=== PATIENT | male | born 1940 | race African-American/Black ===

== ENCOUNTER 2021-01-30 10:53 | Inpatient (IN) | payer MEDICARE, MEDICAID ==
[~2021-01-30] VITALS: Ht 182.9 cm; Wt 106.6 kg
[~2021-01-30 10:53] MED LIST: ASPI-1073 PO; BACL-141 PO; BENA40TA9 PO; ESOM40CA PO; EZET10TA13 PO; FURO40TA5 PO; LOVA40TA73 PO; TERA10CA4 PO; VERA240T16 PO
[2021-01-30 11:51] LABS: BASOPHILS % 0.9 % (0.0-2.0); EOSINOPHILS % 0.7 % (0.0-5.0); HEMATOCRIT. 33.7 % (42.0-52.0); HEMOGLOBIN. 11.2 g/dL (14.0-18.0); LYMPHOCYTES % 14.5 % (20.0-50.0); MEAN CORPUSCULAR HEMOGLOBIN 29.1 pg (28.0-32.0); MEAN CORPUSCULAR VOLUME 87.2 fL (80.0-94.0); MEAN PLATELET VOLUME 8.4 fl (7.4-10.4); MONOCYTES % 10.3 % (2.0-8.0); NEUTROPHILS % 73.6 % (40.0-76.0); PLATELET 237 x1000/uL (130-400); RED BLOOD CELL COUNT 3.86 mill/uL (4.7-6.1); RED CELL DISTRIBUTION WIDTH 15.7 % (11.6-14.6)
[2021-01-30 12:03] LABS: CHLORIDE 107 mEq/L (98-107)
[2021-01-30] MEDS ORDERED: VANCOMYCIN 1 G PREMIX 200 ML IV SCH (13:00)
[2021-01-30] MEDS ORDERED: PIPERACILLIN/TAZOBACTAM 3.375GM/50ML PREMIX IV NR (13:00)
[2021-01-30] MEDS ORDERED: MORPHINE SULFATE 4 MG/ML CPJ (NOT FOR IM USE) IV ONE (16:15)
[2021-01-30] MEDS: GUAIFENESIN 600MG ER TABLET PO SCH (16:23)
[2021-01-30] MEDS ORDERED: ONDANSETRON HCL 4MG/2ML INJ IV PRN (17:00)
[2021-01-30] MEDS ORDERED: CEFTRIAXONE 2 G in DEXTROSE 5% WATER 50 ML IV SCH (18:00)
[2021-01-30 18:31] VITALS: BP 158/75
[2021-01-30 20:00] VITALS: BP 151/80
[2021-01-30] MEDS ORDERED: TETANUS AND DIPHTHERIA TOX/PF 0.5ML SYR (ADULT) IM ONE (20:00)
[2021-01-30] MEDS ORDERED: PIPERACILLIN/TAZ 3.375G PREMIX 100 ML IV SCH (20:00)
[2021-01-30] MEDS: IBUPROFEN 600MG TABLET PO PRN (20:03)
[2021-01-30 20:57] VITALS: BP 151/80
[2021-01-30] MEDS: CEFTRIAXONE 2 G in DEXTROSE 5% WATER 50 ML IV SCH (22:02)
[2021-01-30] MEDS: HEPARIN 5000 UNITS/ML VIAL SUBCUT SCH (22:03)
[2021-01-30] MEDS ORDERED: HYDR12.54 PO (23:01)
[2021-01-30] MEDS ORDERED: OMEP40CA12 PO (23:01)
[2021-01-30] MEDS ORDERED: METO-385 PO (23:01)
[2021-01-30] MEDS ORDERED: AMLO5TAB88 PO (23:01)
[2021-01-30] MEDS ORDERED: GABA-532 PO (23:01)
[2021-01-30] MEDS ORDERED: PRAV20TA57 PO (23:01)
[2021-01-30] MEDS ORDERED: IRBE300T17 PO (23:01)
[2021-01-30] MEDS ORDERED: DOCU250C14 PO (23:01)
[2021-01-31] VITALS: BP 153/78
[2021-01-31] MEDS ORDERED: VANCOMYCIN 1 G PREMIX 200 ML IV SCH ×2 (03:00)
[2021-01-31 04:00] VITALS: BP 122/77
[2021-01-31] MEDS: IBUPROFEN 600MG TABLET PO PRN ×2 (04:57→14:53)
[2021-01-31 07:22] LABS: CHLORIDE 107 mEq/L (98-107)
[2021-01-31 07:40] LABS: BASOPHILS % 0.6 % (0.0-2.0); EOSINOPHILS % 0.6 % (0.0-5.0); HEMATOCRIT. 32.5 % (42.0-52.0); LYMPHOCYTES % 10.3 % (20.0-50.0); MEAN CORPUSCULAR HEMOGLOBIN 29.5 pg (28.0-32.0); MEAN CORPUSCULAR VOLUME 86.9 fL (80.0-94.0); MEAN PLATELET VOLUME 9.1 fl (7.4-10.4); MONOCYTES % 12.2 % (2.0-8.0); NEUTROPHILS % 76.3 % (40.0-76.0); PLATELET 241 x1000/uL (130-400); RED BLOOD CELL COUNT 3.75 mill/uL (4.7-6.1); RED CELL DISTRIBUTION WIDTH 15.2 % (11.6-14.6)
[2021-01-31 08:00] VITALS: BP 128/74
[2021-01-31] MEDS: HEPARIN 5000 UNITS/ML VIAL SUBCUT SCH ×2 (08:56→20:58)
[2021-01-31] MEDS: GUAIFENESIN 600MG ER TABLET PO SCH ×2 (08:56→20:59)
[2021-01-31] MEDS ORDERED: AMLODIPINE 10MG TABLET PO SCH (09:00)
[2021-01-31 12:00] VITALS: BP 120/72
[2021-01-31] MEDS ORDERED: POTASSIUM CHLORIDE 20MEQ TABLET SR PO NR (14:15)
[2021-01-31] MEDS: GABAPENTIN 300MG CAPSULE PO SCH ×2 (15:01→20:59)
[2021-01-31 16:00] VITALS: BP 153/58
[2021-01-31] MEDS: DOCUSATE SODIUM 250MG CAPSULE PO SCH (17:55)
[2021-01-31] MEDS: VANCOMYCIN 1 G PREMIX 200 ML IV SCH (17:55)
[2021-01-31 20:00] VITALS: BP 157/77
[2021-01-31] MEDS: CEFTRIAXONE 2 G in DEXTROSE 5% WATER 50 ML IV SCH (20:58)
[2021-01-31] MEDS: METOPROLOL TARTRATE 25MG TABLET PO SCH (21:12)
[2021-01-31] MEDS: ACETAMINOPHEN 325MG TABLET PO PRN (21:31)
[2021-02-01] VITALS: BP 130/68
[2021-02-01] MEDS: ACETAMINOPHEN 325MG TABLET PO PRN ×4 (03:55→20:51)
[2021-02-01 04:00] VITALS: BP 128/68
[2021-02-01] MEDS: VANCOMYCIN 1 G PREMIX 200 ML IV SCH ×3 (05:10→21:56)
[2021-02-01] MEDS: GABAPENTIN 300MG CAPSULE PO SCH ×3 (05:11→20:50)
[2021-02-01 05:46] LABS: CHLORIDE 107 mEq/L (98-107)
[2021-02-01 05:58] LABS: VANCOMYCIN TROUGH 4.6 ug/mL (5.0-10.0)
[2021-02-01 06:16] LABS: BASOPHILS % 0.4 % (0.0-2.0); EOSINOPHILS % 0.1 % (0.0-5.0); HEMATOCRIT. 31.3 % (42.0-52.0); HEMOGLOBIN. 10.4 g/dL (14.0-18.0); LYMPHOCYTES % 8.5 % (20.0-50.0); MEAN CORPUSCULAR HEMOGLOBIN 28.9 pg (28.0-32.0); MEAN CORPUSCULAR VOLUME 87.1 fL (80.0-94.0); MEAN PLATELET VOLUME 9.2 fl (7.4-10.4); MONOCYTES % 11.5 % (2.0-8.0); NEUTROPHILS % 79.5 % (40.0-76.0); PLATELET 248 x1000/uL (130-400); RED BLOOD CELL COUNT 3.59 mill/uL (4.7-6.1); RED CELL DISTRIBUTION WIDTH 15.2 % (11.6-14.6)
[2021-02-01 08:00] VITALS: BP 148/71
[2021-02-01] MEDS: GUAIFENESIN 600MG ER TABLET PO SCH ×2 (08:45→20:50)
[2021-02-01] MEDS: AMLODIPINE 5MG TABLET PO SCH ×2 (08:45→20:50)
[2021-02-01] MEDS: DOCUSATE SODIUM 250MG CAPSULE PO SCH ×2 (08:45→18:17)
[2021-02-01] MEDS: METOPROLOL TARTRATE 25MG TABLET PO SCH ×2 (08:46→20:52)
[2021-02-01] MEDS: HEPARIN 5000 UNITS/ML VIAL SUBCUT SCH ×2 (08:46→20:51)
[2021-02-01 11:45] VITALS: BP 149/79
[2021-02-01] MEDS: IBUPROFEN 600MG TABLET PO PRN (12:50)
[2021-02-01] MEDS ORDERED: POTASSIUM CHLORIDE 20MEQ TABLET SR PO NR (14:15)
[2021-02-01 16:00] VITALS: BP 157/72
[2021-02-01 20:00] VITALS: BP 131/77
[2021-02-01] MEDS: CEFTRIAXONE 2 G in DEXTROSE 5% WATER 50 ML IV SCH (20:49)
[2021-02-02] VITALS: BP 122/62
[2021-02-02 04:00] VITALS: BP 122/64
[2021-02-02] MEDS: ACETAMINOPHEN 325MG TABLET PO PRN ×4 (05:51→21:39)
[2021-02-02] MEDS: VANCOMYCIN 1 G PREMIX 200 ML IV SCH (05:51)
[2021-02-02] MEDS: GABAPENTIN 300MG CAPSULE PO SCH ×3 (05:51→21:23)
[2021-02-02 08:00] VITALS: BP 146/74
[2021-02-02] MEDS: GUAIFENESIN 600MG ER TABLET PO SCH ×2 (09:18→21:23)
[2021-02-02] MEDS: DOCUSATE SODIUM 250MG CAPSULE PO SCH ×2 (09:20→17:37)
[2021-02-02] MEDS: AMLODIPINE 5MG TABLET PO SCH ×2 (09:20→21:24)
[2021-02-02] MEDS: HEPARIN 5000 UNITS/ML VIAL SUBCUT SCH ×2 (09:21→21:24)
[2021-02-02] MEDS: METOPROLOL TARTRATE 25MG TABLET PO SCH ×2 (09:21→21:24)
[2021-02-02 09:51] LABS: BASOPHILS % 0.5 % (0.0-2.0); EOSINOPHILS % 0.5 % (0.0-5.0); HEMATOCRIT. 30.5 % (42.0-52.0); HEMOGLOBIN. 10.2 g/dL (14.0-18.0); LYMPHOCYTES % 7.8 % (20.0-50.0); MEAN CORPUSCULAR VOLUME 86.9 fL (80.0-94.0); MEAN PLATELET VOLUME 9.1 fl (7.4-10.4); MONOCYTES % 10.6 % (2.0-8.0); NEUTROPHILS % 80.6 % (40.0-76.0); PLATELET 239 x1000/uL (130-400); RED BLOOD CELL COUNT 3.51 mill/uL (4.7-6.1); RED CELL DISTRIBUTION WIDTH 16.1 % (11.6-14.6)
[2021-02-02 10:16] LABS: CHLORIDE 104 mEq/L (98-107)
[2021-02-02] MEDS ORDERED: POTASSIUM CHLORIDE 20MEQ TABLET SR PO NR ×2 (11:00→13:00)
[2021-02-02 12:00] VITALS: BP 122/59
[2021-02-02 16:00] VITALS: BP 140/63
[2021-02-02] MEDS: VANCOMYCIN 1250MG in DEXTROSE 5% WATER 250ML IV SCH (17:37)
[2021-02-02 20:00] VITALS: BP 139/70
[2021-02-02] MEDS: CEFTRIAXONE 2 G in DEXTROSE 5% WATER 50 ML IV SCH (21:23)
[2021-02-02] MEDS: TRAZODONE HCL 50MG TABLET PO PRN (21:38)
[2021-02-03] VITALS: BP 141/65
[2021-02-03] MEDS: ACETAMINOPHEN 325MG TABLET PO PRN ×3 (02:36→18:07)
[2021-02-03 04:00] VITALS: BP 138/66
[2021-02-03] MEDS: GABAPENTIN 300MG CAPSULE PO SCH ×3 (05:14→21:00)
[2021-02-03] MEDS: VANCOMYCIN 1250MG in DEXTROSE 5% WATER 250ML IV SCH ×2 (05:14→17:16)
[2021-02-03 07:02] LABS: HEMATOCRIT. 29.3 % (42.0-52.0); HEMOGLOBIN. 9.7 g/dL (14.0-18.0); MEAN CORPUSCULAR HEMOGLOBIN 28.6 pg (28.0-32.0); MEAN CORPUSCULAR VOLUME 86.3 fL (80.0-94.0); MEAN PLATELET VOLUME 8.9 fl (7.4-10.4); PLATELET 260 x1000/uL (130-400); RED CELL DISTRIBUTION WIDTH 16.1 % (11.6-14.6)
[2021-02-03 07:12] LABS: CHLORIDE 107 mEq/L (98-107)
[2021-02-03 08:00] VITALS: BP 112/70
[2021-02-03] MEDS: DOCUSATE SODIUM 250MG CAPSULE PO SCH ×2 (08:32→17:16)
[2021-02-03] MEDS: GUAIFENESIN 600MG ER TABLET PO SCH ×2 (08:32→20:55)
[2021-02-03] MEDS: AMLODIPINE 5MG TABLET PO SCH ×2 (08:32→20:55)
[2021-02-03] MEDS: METOPROLOL TARTRATE 25MG TABLET PO SCH ×2 (08:33→20:55)
[2021-02-03] MEDS: HEPARIN 5000 UNITS/ML VIAL SUBCUT SCH ×2 (08:34→20:56)
[2021-02-03 12:00] VITALS: BP 150/72
[2021-02-03] MEDS: TRAMADOL 50MG TABLET PO PRN ×2 (13:22→19:35)
[2021-02-03 16:00] VITALS: BP 142/73
[2021-02-03 19:36] LABS: PLATELET ESTIMATE NORMAL
[2021-02-03 20:00] VITALS: BP 144/75
[2021-02-03] MEDS: CEFTRIAXONE 2 G in DEXTROSE 5% WATER 50 ML IV SCH (20:45)
[2021-02-03] MEDS: TRAZODONE HCL 50MG TABLET PO PRN (21:00)
[2021-02-04] VITALS: BP 121/65
[2021-02-04] MEDS: TRAMADOL 50MG TABLET PO PRN ×3 (01:38→17:12)
[2021-02-04 04:00] VITALS: BP 115/62
[2021-02-04] MEDS: VANCOMYCIN 1250MG in DEXTROSE 5% WATER 250ML IV SCH (05:07)
[2021-02-04] MEDS: GABAPENTIN 300MG CAPSULE PO SCH ×3 (05:07→21:05)
[2021-02-04 06:21] LABS: HEMATOCRIT. 30.9 % (42.0-52.0); HEMOGLOBIN. 10.2 g/dL (14.0-18.0); MEAN CORPUSCULAR HEMOGLOBIN 28.4 pg (28.0-32.0); MEAN CORPUSCULAR VOLUME 86.5 fL (80.0-94.0); MEAN PLATELET VOLUME 8.6 fl (7.4-10.4); PLATELET 310 x1000/uL (130-400); RED BLOOD CELL COUNT 3.57 mill/uL (4.7-6.1); RED CELL DISTRIBUTION WIDTH 16.2 % (11.6-14.6)
[2021-02-04 07:26] LABS: CHLORIDE 106 mEq/L (98-107)
[2021-02-04 08:00] VITALS: BP 124/63
[2021-02-04] MEDS: DOCUSATE SODIUM 250MG CAPSULE PO SCH ×2 (08:34→17:11)
[2021-02-04] MEDS: GUAIFENESIN 600MG ER TABLET PO SCH ×2 (08:35→21:04)
[2021-02-04] MEDS: METOPROLOL TARTRATE 25MG TABLET PO SCH ×2 (08:35→21:04)
[2021-02-04] MEDS: AMLODIPINE 5MG TABLET PO SCH ×2 (08:35→21:05)
[2021-02-04] MEDS: HEPARIN 5000 UNITS/ML VIAL SUBCUT SCH ×2 (08:36→21:04)
[2021-02-04] MEDS: ACETAMINOPHEN 325MG TABLET PO PRN (10:34)
[2021-02-04 12:00] VITALS: BP 116/65
[2021-02-04 12:40] LABS: PLATELET ESTIMATE NORMAL
[2021-02-04] MEDS: HYDROCODONE/ACETAMINOPHEN 5/325MG TABLET PO PRN ×2 (13:19→21:06)
[2021-02-04 16:00] VITALS: BP 139/64
[2021-02-04 20:00] VITALS: BP 135/67
[2021-02-04] MEDS: CEFTRIAXONE 2 G in DEXTROSE 5% WATER 50 ML IV SCH (20:29)
[2021-02-04] MEDS: VANCOMYCIN 1 G PREMIX 200 ML IV SCH (21:06)
[2021-02-05] VITALS: BP 126/68
[2021-02-05 04:00] VITALS: BP 134/76
[2021-02-05] MEDS: HYDROCODONE/ACETAMINOPHEN 5/325MG TABLET PO PRN ×2 (04:05→20:13)
[2021-02-05] MEDS: GABAPENTIN 300MG CAPSULE PO SCH ×3 (05:53→21:58)
[2021-02-05 08:00] VITALS: BP 128/60
[2021-02-05 08:33] LABS: HEMATOCRIT. 29.1 % (42.0-52.0); HEMOGLOBIN. 9.7 g/dL (14.0-18.0); MEAN CORPUSCULAR HEMOGLOBIN 28.7 pg (28.0-32.0); MEAN CORPUSCULAR VOLUME 86.1 fL (80.0-94.0); MEAN PLATELET VOLUME 8.4 fl (7.4-10.4); PLATELET 322 x1000/uL (130-400); RED BLOOD CELL COUNT 3.38 mill/uL (4.7-6.1); RED CELL DISTRIBUTION WIDTH 16.5 % (11.6-14.6)
[2021-02-05] MEDS: IBUPROFEN 600MG TABLET PO PRN ×2 (08:37→17:18)
[2021-02-05] MEDS: AMLODIPINE 5MG TABLET PO SCH (09:14)
[2021-02-05] MEDS: DOCUSATE SODIUM 250MG CAPSULE PO SCH ×2 (09:14→17:18)
[2021-02-05] MEDS: GUAIFENESIN 600MG ER TABLET PO SCH ×2 (09:14→21:57)
[2021-02-05] MEDS: METOPROLOL TARTRATE 25MG TABLET PO SCH (09:15)
[2021-02-05] MEDS: HEPARIN 5000 UNITS/ML VIAL SUBCUT SCH ×2 (09:15→21:59)
[2021-02-05] MEDS: VANCOMYCIN 1 G PREMIX 200 ML IV SCH (09:15)
[2021-02-05 12:00] VITALS: BP 108/62
[2021-02-05 16:00] VITALS: BP 118/60
[2021-02-05 16:54] LABS: PLATELET ESTIMATE NORMAL
[2021-02-05 20:00] VITALS: BP 130/64
[2021-02-05] MEDS: CEFTRIAXONE 2 G in DEXTROSE 5% WATER 50 ML IV SCH (20:12)
[2021-02-05] MEDS: METOPROLOL TARTRATE 50MG TABLET PO SCH (21:57)
[2021-02-05] MEDS: AMLODIPINE 2.5MG TABLET PO SCH (21:58)
[2021-02-06] VITALS: BP 112/59
[2021-02-06] MEDS: HYDROCODONE/ACETAMINOPHEN 5/325MG TABLET PO PRN ×2 (01:25→20:44)
[2021-02-06 04:00] VITALS: BP 115/61
[2021-02-06] MEDS: GABAPENTIN 300MG CAPSULE PO SCH ×3 (05:10→21:53)
[2021-02-06 08:00] VITALS: BP 121/43
[2021-02-06] MEDS: AMLODIPINE 2.5MG TABLET PO SCH ×2 (09:00→20:19)
[2021-02-06] MEDS: DOCUSATE SODIUM 250MG CAPSULE PO SCH ×2 (09:00→18:32)
[2021-02-06] MEDS: GUAIFENESIN 600MG ER TABLET PO SCH ×2 (09:00→20:37)
[2021-02-06] MEDS: METOPROLOL TARTRATE 50MG TABLET PO SCH ×2 (09:00→20:43)
[2021-02-06] MEDS: HEPARIN 5000 UNITS/ML VIAL SUBCUT SCH ×2 (09:00→20:37)
[2021-02-06] MEDS: IBUPROFEN 600MG TABLET PO PRN (11:16)
[2021-02-06] MEDS ORDERED: VANCOMYCIN HCL 1 GM/VIAL ONE (11:56)
[2021-02-06] MEDS ORDERED: BACITRACIN 50,000 UNITS/VIAL ONE (11:57)
[2021-02-06] MEDS ORDERED: ROPIVACAINE HCL 10MG/ML 20 ML VIAL EPI ONE (12:32)
[2021-02-06] MEDS ORDERED: LABETALOL 5MG/ML SYR 20 MG/4 ML SYRINGE IV PRN (13:15)
[2021-02-06] MEDS ORDERED: HYDROMORPHONE HCL/PF 2MG/ML CPJ IV PRN (13:15)
[2021-02-06] MEDS ORDERED: MEPERIDINE HCL/PF 25MG/ML CPJ IV PRN (13:15)
[2021-02-06] MEDS ORDERED: ONDANSETRON HCL 4MG/2ML INJ IV PRN (13:15)
[2021-02-06 20:00] VITALS: BP 118/71
[2021-02-06] MEDS: CEFTRIAXONE 2 G in DEXTROSE 5% WATER 50 ML IV SCH (20:06)
[2021-02-06] MEDS: LINEZOLID 600 MG PREMIX 300 ML IV SCH (23:52)
[2021-02-07] VITALS: BP 103/52
[2021-02-07 04:00] VITALS: BP 130/58
[2021-02-07] MEDS: TRAMADOL 50MG TABLET PO PRN (04:25)
[2021-02-07] MEDS: GABAPENTIN 300MG CAPSULE PO SCH ×3 (06:13→20:36)
[2021-02-07 08:00] VITALS: BP 103/64
[2021-02-07] MEDS: METOPROLOL TARTRATE 50MG TABLET PO SCH ×2 (08:22→20:36)
[2021-02-07] MEDS: AMLODIPINE 2.5MG TABLET PO SCH ×2 (08:23→20:39)
[2021-02-07] MEDS: DOCUSATE SODIUM 250MG CAPSULE PO SCH ×2 (08:33→16:18)
[2021-02-07] MEDS: HYDROCODONE/ACETAMINOPHEN 5/325MG TABLET PO PRN (08:33)
[2021-02-07] MEDS: LINEZOLID 600 MG PREMIX 300 ML IV SCH ×2 (08:33→22:32)
[2021-02-07] MEDS: GUAIFENESIN 600MG ER TABLET PO SCH ×2 (08:33→20:39)
[2021-02-07] MEDS: HEPARIN 5000 UNITS/ML VIAL SUBCUT SCH ×2 (08:33→20:40)
[2021-02-07] MEDS: SODIUM CHLORIDE 0.9% 1,000 ML IV SCH (11:22)
[2021-02-07 12:00] VITALS: BP 105/54
[2021-02-07] MEDS ORDERED: ALLOPURINOL 100 MG TABLET PO SCH (13:15)
[2021-02-07] MEDS: COLCHICINE 0.6MG TABLET PO SCH (15:06)
[2021-02-07 15:50] LABS: CLARITY URINE CLOUDY (CLEAR); COLOR URINE DARK YELLOW (YELLOW); KETONES URINE NEGATIVE (NEGATIVE); LEUKOCYTE ESTERASE URINE TRACE (NEGATIVE); NITRITE URINE NEGATIVE (NEGATIVE); OCCULT BLOOD URINE TRACE (NEGATIVE); PROTEIN URINE TRACE (NEGATIVE)
[2021-02-07 16:00] VITALS: BP 141/56
[2021-02-07] MEDS: CEFTRIAXONE 2 G in DEXTROSE 5% WATER 50 ML IV SCH (20:36)
[2021-02-07 20:39] VITALS: BP 165/71
[2021-02-07] MEDS: ACETAMINOPHEN 325MG TABLET PO PRN (20:39)
[2021-02-08] MEDS: TRAMADOL 50MG TABLET PO PRN ×2 (00:45→09:33)
[2021-02-08 01:02] VITALS: BP 127/58
[2021-02-08] MEDS: GABAPENTIN 300MG CAPSULE PO SCH ×3 (06:11→21:00)
[2021-02-08 06:22] LABS: HEMATOCRIT. 24.7 % (42.0-52.0); HEMOGLOBIN. 8.4 g/dL (14.0-18.0); MEAN CORPUSCULAR VOLUME 85.3 fL (80.0-94.0); MEAN PLATELET VOLUME 7.8 fl (7.4-10.4); PLATELET 414 x1000/uL (130-400); RED CELL DISTRIBUTION WIDTH 16.8 % (11.6-14.6)
[2021-02-08 06:40] LABS: PHOSPHORUS 4.8 mg/dL (2.5-4.9)
[2021-02-08 08:00] VITALS: BP 122/59
[2021-02-08] MEDS ORDERED: POTASSIUM CHLORIDE 20MEQ TABLET SR PO SCH (09:00)
[2021-02-08] MEDS ORDERED: HYDROCODONE/ACETAMINOPHEN 5/325MG TABLET PO SCH (09:15)
[2021-02-08] MEDS: GUAIFENESIN 600MG ER TABLET PO SCH ×2 (09:42→20:57)
[2021-02-08] MEDS: HEPARIN 5000 UNITS/ML VIAL SUBCUT SCH ×2 (09:42→20:59)
[2021-02-08] MEDS: DOCUSATE SODIUM 250MG CAPSULE PO SCH (09:42)
[2021-02-08] MEDS: PREDNISONE 10MG TABLET PO SCH (09:43)
[2021-02-08] MEDS: METOPROLOL TARTRATE 50MG TABLET PO SCH ×2 (09:43→20:56)
[2021-02-08] MEDS: AMLODIPINE 2.5MG TABLET PO SCH ×2 (09:43→20:58)
[2021-02-08] MEDS: ALLOPURINOL 100 MG TABLET PO SCH (09:43)
[2021-02-08] MEDS: COLCHICINE 0.6MG TABLET PO SCH (09:43)
[2021-02-08] MEDS: LINEZOLID 600 MG PREMIX 300 ML IV SCH ×2 (09:44→22:06)
[2021-02-08 12:00] VITALS: BP 110/54
[2021-02-08] MEDS: SODIUM CHLORIDE 0.9% 1,000 ML IV SCH ×2 (13:28→21:00)
[2021-02-08 14:41] LABS: PLATELET ESTIMATE SLIGHTLY INCREASED
[2021-02-08 16:00] VITALS: BP 130/61
[2021-02-08] MEDS: ACETAMINOPHEN 325MG TABLET PO PRN ×2 (16:32→21:37)
[2021-02-08] MEDS: DOCUSATE SODIUM SUGAR FREE 100MG/10ML UDC PO SCH (17:54)
[2021-02-08 20:00] VITALS: BP 128/60
[2021-02-08] MEDS: CEFTRIAXONE 2 G in DEXTROSE 5% WATER 50 ML IV SCH (20:53)
[2021-02-09] VITALS: BP 125/54
[2021-02-09] MEDS: SODIUM CHLORIDE 0.9% 1,000 ML IV SCH ×3 (03:10→20:19)
[2021-02-09 04:00] VITALS: BP 125/54
[2021-02-09] MEDS: ACETAMINOPHEN 325MG TABLET PO PRN ×3 (04:56→20:21)
[2021-02-09] MEDS: GABAPENTIN 300MG CAPSULE PO SCH ×3 (06:04→20:20)
[2021-02-09 07:02] LABS: HEMATOCRIT. 24.1 % (42.0-52.0); HEMOGLOBIN. 8.3 g/dL (14.0-18.0); MEAN CORPUSCULAR HEMOGLOBIN 29.1 pg (28.0-32.0); MEAN CORPUSCULAR VOLUME 84.9 fL (80.0-94.0); MEAN PLATELET VOLUME 7.7 fl (7.4-10.4); PLATELET 418 x1000/uL (130-400); RED BLOOD CELL COUNT 2.84 mill/uL (4.7-6.1); RED CELL DISTRIBUTION WIDTH 17.1 % (11.6-14.6)
[2021-02-09 08:00] VITALS: BP 129/59
[2021-02-09] MEDS: METOPROLOL TARTRATE 50MG TABLET PO SCH ×2 (08:24→20:21)
[2021-02-09] MEDS: DOCUSATE SODIUM SUGAR FREE 100MG/10ML UDC PO SCH (09:22)
[2021-02-09] MEDS: HEPARIN 5000 UNITS/ML VIAL SUBCUT SCH ×2 (09:22→20:22)
[2021-02-09] MEDS: PREDNISONE 10MG TABLET PO SCH (09:23)
[2021-02-09] MEDS: GUAIFENESIN 600MG ER TABLET PO SCH ×2 (09:23→20:19)
[2021-02-09] MEDS: COLCHICINE 0.6MG TABLET PO SCH (09:23)
[2021-02-09] MEDS: ALLOPURINOL 100 MG TABLET PO SCH (09:23)
[2021-02-09] MEDS: AMLODIPINE 2.5MG TABLET PO SCH ×2 (09:23→20:20)
[2021-02-09] MEDS: LINEZOLID 600 MG PREMIX 300 ML IV SCH ×2 (09:25→21:00)
[2021-02-09 12:00] VITALS: BP 136/68
[2021-02-09 14:11] LABS: PLATELET ESTIMATE SLIGHTLY INCREASED
[2021-02-09 16:00] VITALS: BP 136/62
[2021-02-09] MEDS: TRAMADOL 50MG TABLET PO PRN (16:03)
[2021-02-09 20:00] VITALS: BP 149/70
[2021-02-09] MEDS: CEFTRIAXONE 2 G in DEXTROSE 5% WATER 50 ML IV SCH (20:19)
[2021-02-10] VITALS: BP 129/58
[2021-02-10] MEDS: ACETAMINOPHEN 325MG TABLET PO SCH
[2021-02-10] MEDS: TRAZODONE HCL 50MG TABLET PO PRN
[2021-02-10] MEDS: TRAMADOL 50MG TABLET PO PRN ×3 (00:01→18:23)
[2021-02-10 04:00] VITALS: BP 143/65
[2021-02-10] MEDS: SODIUM CHLORIDE 0.9% 1,000 ML IV SCH ×2 (04:24→14:30)
[2021-02-10] MEDS: GABAPENTIN 300MG CAPSULE PO SCH ×4 (06:03→22:00)
[2021-02-10 06:05] LABS: HEMATOCRIT. 25.5 % (42.0-52.0); HEMOGLOBIN. 8.6 g/dL (14.0-18.0); MEAN CORPUSCULAR HEMOGLOBIN 28.7 pg (28.0-32.0); MEAN CORPUSCULAR VOLUME 84.9 fL (80.0-94.0); MEAN PLATELET VOLUME 7.5 fl (7.4-10.4); PLATELET 462 x1000/uL (130-400); RED BLOOD CELL COUNT 3.01 mill/uL (4.7-6.1); RED CELL DISTRIBUTION WIDTH 16.9 % (11.6-14.6)
[2021-02-10 07:30] LABS: PHOSPHORUS 4.5 mg/dL (2.5-4.9)
[2021-02-10 08:00] VITALS: BP 151/67
[2021-02-10] MEDS: COLCHICINE 0.6MG TABLET PO SCH (08:54)
[2021-02-10] MEDS: GUAIFENESIN 600MG ER TABLET PO SCH ×3 (08:54→21:35)
[2021-02-10] MEDS: METOPROLOL TARTRATE 50MG TABLET PO SCH ×3 (08:55→21:34)
[2021-02-10] MEDS: AMLODIPINE 2.5MG TABLET PO SCH (08:55)
[2021-02-10] MEDS: ALLOPURINOL 100 MG TABLET PO SCH (08:55)
[2021-02-10] MEDS: HEPARIN 5000 UNITS/ML VIAL SUBCUT SCH ×2 (08:56→21:00)
[2021-02-10] MEDS: LINEZOLID 600 MG PREMIX 300 ML IV SCH ×2 (08:56→21:31)
[2021-02-10] MEDS: PREDNISONE 10MG TABLET PO SCH ×3 (08:56→17:31)
[2021-02-10] MEDS: DOCUSATE SODIUM 250MG CAPSULE PO SCH ×2 (09:00→17:00)
[2021-02-10 12:00] VITALS: BP 158/73
[2021-02-10 16:00] VITALS: BP 167/73
[2021-02-10 20:00] VITALS: BP 153/66
[2021-02-10] MEDS ORDERED: CEFTRIAXONE 2 G in DEXTROSE 5% WATER 50 ML IV SCH (20:00)
[2021-02-10] MEDS: AMLODIPINE 5MG TABLET PO SCH (21:34)
[2021-02-10] MEDS: LINEZOLID 600MG TABLET PO SCH (23:00)
[2021-02-10 23:04] LABS: PLATELET ESTIMATE INCREASED
[2021-02-11] VITALS: BP 159/68
[2021-02-11] MEDS: SODIUM CHLORIDE 0.9% 1,000 ML IV SCH (03:24)
[2021-02-11 06:05] LABS: HEMATOCRIT. 24.8 % (42.0-52.0); HEMOGLOBIN. 8.3 g/dL (14.0-18.0); MEAN CORPUSCULAR HEMOGLOBIN 28.8 pg (28.0-32.0); MEAN CORPUSCULAR VOLUME 85.8 fL (80.0-94.0); MEAN PLATELET VOLUME 7.2 fl (7.4-10.4); PLATELET 453 x1000/uL (130-400); RED BLOOD CELL COUNT 2.89 mill/uL (4.7-6.1); RED CELL DISTRIBUTION WIDTH 17.2 % (11.6-14.6)
[2021-02-11] MEDS: GABAPENTIN 300MG CAPSULE PO SCH ×2 (06:25→13:26)
[2021-02-11 06:49] LABS: PHOSPHORUS 4.5 mg/dL (2.5-4.9)
[2021-02-11 08:00] VITALS: BP 163/67
[2021-02-11] MEDS: LINEZOLID 600 MG PREMIX 300 ML IV SCH (09:00)
[2021-02-11] MEDS: DOCUSATE SODIUM 250MG CAPSULE PO SCH ×2 (09:00→17:00)
[2021-02-11] MEDS: ALLOPURINOL 100 MG TABLET PO SCH (09:32)
[2021-02-11] MEDS: COLCHICINE 0.6MG TABLET PO SCH (09:32)
[2021-02-11] MEDS: GUAIFENESIN 600MG ER TABLET PO SCH (09:32)
[2021-02-11] MEDS: METOPROLOL TARTRATE 50MG TABLET PO SCH (09:33)
[2021-02-11] MEDS: HEPARIN 5000 UNITS/ML VIAL SUBCUT SCH (09:33)
[2021-02-11] MEDS: PREDNISONE 10MG TABLET PO SCH ×2 (09:34→17:06)
[2021-02-11] MEDS: AMLODIPINE 5MG TABLET PO SCH (09:34)
[2021-02-11] MEDS: TRAMADOL 50MG TABLET PO PRN (09:53)
[2021-02-11 12:00] VITALS: BP 168/74
[2021-02-11] MEDS: LINEZOLID 600MG TABLET PO SCH (13:26)
[2021-02-11 16:00] VITALS: BP 182/60
[2021-02-11] MEDS: CLONIDINE 0.1MG TABLET PO SCH (17:11)
[2021-02-11 17:44] LABS: PLATELET ESTIMATE INCREASED
[2021-02-11] MEDS: ACETAMINOPHEN 325MG TABLET PO SCH (18:40)
[2021-02-11 20:38] VITALS: BP 154/66
[2021-02-11] MEDS ORDERED: DOXAZOSIN MESYLATE 2MG TABLET PO SCH (21:00)
[2021-02-12] VITALS (7 sets, daily range): BP systolic 114–172; BP diastolic 60–69
[2021-02-12] MEDS: AMLODIPINE 5MG TABLET PO SCH ×2 (01:21→09:41)
[2021-02-12] MEDS: CLONIDINE 0.1MG TABLET PO SCH ×3 (01:24→14:26)
[2021-02-12] MEDS: TRAMADOL 50MG TABLET PO PRN ×2 (01:31→09:44)
[2021-02-12] MEDS: GABAPENTIN 300MG CAPSULE PO SCH ×2 (06:00→14:26)
[2021-02-12 07:27] LABS: HEMATOCRIT. 23.8 % (42.0-52.0); HEMOGLOBIN. 7.9 g/dL (14.0-18.0); MEAN CORPUSCULAR VOLUME 84.5 fL (80.0-94.0); MEAN PLATELET VOLUME 7.6 fl (7.4-10.4); PLATELET 434 x1000/uL (130-400); RED BLOOD CELL COUNT 2.82 mill/uL (4.7-6.1); RED CELL DISTRIBUTION WIDTH 16.9 % (11.6-14.6)
[2021-02-12 08:08] LABS: PHOSPHORUS 5.1 mg/dL (2.5-4.9)
[2021-02-12] MEDS ORDERED: METOPROLOL TARTRATE 25MG TABLET PO SCH (09:00)
[2021-02-12] MEDS: GUAIFENESIN 600MG ER TABLET PO SCH (09:41)
[2021-02-12] MEDS: PREDNISONE 10MG TABLET PO SCH ×2 (09:41→17:48)
[2021-02-12] MEDS: ALLOPURINOL 100 MG TABLET PO SCH (09:41)
[2021-02-12] MEDS: COLCHICINE 0.6MG TABLET PO SCH (09:41)
[2021-02-12] MEDS: DOCUSATE SODIUM 250MG CAPSULE PO SCH ×2 (09:41→16:06)
[2021-02-12] MEDS: HEPARIN 5000 UNITS/ML VIAL SUBCUT SCH (09:42)
[2021-02-12] MEDS: LINEZOLID 600MG TABLET PO SCH (10:02)
[2021-02-12] MEDS ORDERED: LIDOCAINE HCL 1% 20ML VIAL (Pyxis) INJ ONE (12:47)
[2021-02-12 14:19] LABS: PLATELET ESTIMATE INCREASED
[2021-02-12] MEDS ORDERED: CEFTRIAXONE 2 G in DEXTROSE 5% WATER 50 ML IV SCH (14:30)
[2021-02-12 14:38] LABS: BG BASE EXCESS -5.8 mmol/L (-2.0-2.0); BG CARBOXYHEMOGLOBIN 0.3 % (0.5-1.5); BG DEOXYHEMOGLOBIN 3.9 % (0.0-5.0); BG FRACTION INSPIRED OXYGEN 21; BG METHEMOGLOBIN 0.4 % (0.0-1.5); BG OXYGEN SATURATION 96.1 % (92.0-98.5); BG OXYHEMOGLOBIN 95.4 % (94.0-97.0); BG PCO2 40.3 mmHg (35.0-45.0); BG PH 7.313 (7.350-7.450); BG PO2 89.3 mmHg (75.0-100.0); BG SAMPLE SITE LEFT RADIAL; BG TOTAL HEMOGLOBIN 9.2 g/dL (12.0-18.0); BG VENT MODE NASAL CANNULA
== END 2021-02-12 20:50 | DRG 853 ==
LOC: ER 10:53 → 5WST 15:08 → EDBEDREQ 15:29 → EDBEDREQTM 15:52 → ENRESERV 17:08
PROVIDERS: ADMIT Family Medicine Adult Medicine; ATTEND Family Medicine Adult Medicine
PROC: 0X9J0ZZ Drainage of Right Hand, Open Approach (ICD-10-PCS; principal; 2021-02-06)
PROC: 0JBJ0ZZ Excision of Right Hand Subcutaneous Tissue and Fascia, Open Approach (ICD-10-PCS; 2021-02-06)
PROC: B5181ZA Fluoroscopy of Superior Vena Cava using Low Osmolar Contrast, Guidance (ICD-10-PCS; 2021-02-12)
PROC: 02HV33Z Insertion of Infusion Device into Superior Vena Cava, Percutaneous Approach (ICD-10-PCS; 2021-02-12)
PROC: B548ZZA Ultrasonography of Superior Vena Cava, Guidance (ICD-10-PCS; 2021-02-12)
DX: A41.9 Sepsis, unspecified organism (principal); G92 Toxic encephalopathy; N17.0 Acute kidney failure with tubular necrosis; L03.113 Cellulitis of right upper limb; L03.114 Cellulitis of left upper limb; M00.9 Pyogenic arthritis, unspecified; E44.0 Moderate protein-calorie malnutrition; D62 Acute posthemorrhagic anemia; L02.511 Cutaneous abscess of right hand; J90 Pleural effusion, not elsewhere classified; E87.1 Hypo-osmolality and hyponatremia; M86.8X4 Other osteomyelitis, hand; I10 Essential (primary) hypertension; Z96.649 Presence of unspecified artificial hip joint; E87.6 Hypokalemia; K80.20 Calculus of gallbladder without cholecystitis without obstruction; Z96.659 Presence of unspecified artificial knee joint; G62.9 Polyneuropathy, unspecified; I73.9 Peripheral vascular disease, unspecified; M17.12 Unilateral primary osteoarthritis, left knee; Z20.822 Contact with and (suspected) exposure to COVID-19; G54.6 Phantom limb syndrome with pain; T40.605A Adverse effect of unspecified narcotics, initial encounter; I16.0 Hypertensive urgency; R00.1 Bradycardia, unspecified; E66.01 Morbid (severe) obesity due to excess calories; M10.042 Idiopathic gout, left hand; M10.041 Idiopathic gout, right hand; M65.9 Synovitis and tenosynovitis, unspecified; Z89.511 Acquired absence of right leg below knee; Z82.49 Family history of ischemic heart disease and other diseases of the circulatory system; Z85.46 Personal history of malignant neoplasm of prostate; Z68.31 Body mass index [BMI] 31.0-31.9, adult; Z79.899 Other long term (current) drug therapy; Z83.3 Family history of diabetes mellitus; Y92.89 Other specified places as the place of occurrence of the external cause; I25.2 Old myocardial infarction
CPT/HCPCS: 36415; 36573; 36600; 71045; 73130; 73221; 76705; 76770; 80048; 80053; 80202; 81003; 82375; 82533; 82550; 82805; 83036; 83605; 83735; 84100; 84443; 84550; 85025; 85651; 86140; 87070; 87075; 87426; 88304; 90714; 93005; 93971; 97110; 97162; 97164; 97166; 97168; 97535; 99285; C1725; J0696; J1170; J1644; J2020; J2250; J2270; J2405; J2543; J2704; J2795; J3010; J3370; J3490; J7030; J7040; J7060; J7512; A4315

== ENCOUNTER 2021-02-19 12:09 | Inpatient (IN) | payer MEDICARE, MEDICAID ==
[~2021-02-19] VITALS: Ht 182.9 cm; Wt 110.7 kg
[~2021-02-19 12:09] MED LIST changes: +AMLO5TAB88 PO; -ASPI-1073 PO; -BACL-141 PO; -BENA40TA9 PO; +DOCU250C14 PO; -ESOM40CA PO; -EZET10TA13 PO; -FURO40TA5 PO; +GABA-532 PO; +HYDR12.54 PO; +IRBE300T17 PO; -LOVA40TA73 PO; +METO-385 PO; +OMEP40CA12 PO; +PRAV20TA57 PO; -TERA10CA4 PO; -VERA240T16 PO
[2021-02-19 13:22] LABS: BASOPHILS % 0.5 % (0.0-2.0); EOSINOPHILS % 0.5 % (0.0-5.0); HEMATOCRIT. 25.9 % (42.0-52.0); HEMOGLOBIN. 8.5 g/dL (14.0-18.0); LYMPHOCYTES % 11.6 % (20.0-50.0); MEAN CORPUSCULAR VOLUME 85.4 fL (80.0-94.0); MEAN PLATELET VOLUME 7.5 fl (7.4-10.4); MONOCYTES % 6.2 % (2.0-8.0); NEUTROPHILS % 81.2 % (40.0-76.0); PLATELET 290 x1000/uL (130-400); RED BLOOD CELL COUNT 3.03 mill/uL (4.7-6.1); RED CELL DISTRIBUTION WIDTH 17.2 % (11.6-14.6)
[2021-02-19 13:24] LABS: CHLORIDE 112 mEq/L (98-107)
[2021-02-19] MEDS ORDERED: POTASSIUM PHOS,M-BASIC-D-BASIC 30 MMOL in SODIUM CHLORIDE 0.9% 500 ML IV ONE (14:15)
[2021-02-19] MEDS ORDERED: MAGNESIUM 1 G PREMIX 100 ML IV ONE (14:15)
[2021-02-19] MEDS ORDERED: ACETAMINOPHEN 325MG TABLET PO PRN (15:15)
[2021-02-19] MEDS ORDERED: ONDANSETRON HCL 4MG/2ML INJ IV PRN (15:15)
[2021-02-19] MEDS ORDERED: POTASSIUM CHLORIDE 20MEQ TABLET SR PO NR ×2 (15:15→15:45)
[2021-02-19] MEDS ORDERED: HYDRALAZINE 20MG/ML VIAL IV PRN (15:15)
[2021-02-19] MEDS ORDERED: TRAZODONE HCL 50MG TABLET PO PRN (15:15)
[2021-02-19 16:02] LABS: TOTAL IRON BINDING CAPACITY 203 ug/dL (250-450)
[2021-02-19 16:06] LABS: INR 1.1; PROTHROMBIN TIME 11.4 sec (9.6-11.0)
[2021-02-19 16:21] LABS: FERRITIN 373 ng/mL (22-322)
[2021-02-19 16:30] LABS: VITAMIN B12 SERUM >2000 pg/mL pg/mL (211-911)
[2021-02-19] MEDS ORDERED: TRAMADOL 50MG TABLET PO PRN (17:30)
[2021-02-19] MEDS: CLONIDINE 0.1MG TABLET PO PRN (17:41)
[2021-02-19 18:04] VITALS: BP 151/101
[2021-02-19] MEDS: GABAPENTIN 300MG CAPSULE PO SCH (18:36)
[2021-02-19] MEDS: ALLOPURINOL 300 MG TABLET PO SCH (18:36)
[2021-02-19] MEDS: DOCUSATE SODIUM SUGAR FREE 100MG/10ML UDC PO SCH (18:52)
[2021-02-19 20:00] VITALS: BP 148/69
[2021-02-19] MEDS: COLCHICINE 0.6MG TABLET PO SCH (21:07)
[2021-02-19] MEDS: HEPARIN 5000 UNITS/ML VIAL SUBCUT SCH (21:08)
[2021-02-19 22:00] VITALS: BP 152/68
[2021-02-20] VITALS (12 sets, daily range): BP systolic 145–175; BP diastolic 54–82
[2021-02-20] MEDS: DOCUSATE SODIUM SUGAR FREE 100MG/10ML UDC PO SCH ×2 (09:00→17:00)
[2021-02-20] MEDS: GABAPENTIN 300MG CAPSULE PO SCH ×3 (09:07→17:55)
[2021-02-20] MEDS: COLCHICINE 0.6MG TABLET PO SCH ×2 (09:07→21:55)
[2021-02-20] MEDS: ALLOPURINOL 300 MG TABLET PO SCH (09:07)
[2021-02-20] MEDS: HEPARIN 5000 UNITS/ML VIAL SUBCUT SCH ×2 (09:08→21:55)
[2021-02-20] MEDS ORDERED: LIDOCAINE HCL 1% 20ML VIAL (Pyxis) INJ INFIL SCH (11:00)
[2021-02-20 11:17] LABS: BASOPHILS % 0.6 % (0.0-2.0); EOSINOPHILS % 1.1 % (0.0-5.0); HEMATOCRIT. 23.1 % (42.0-52.0); HEMOGLOBIN. 7.8 g/dL (14.0-18.0); LYMPHOCYTES % 16.9 % (20.0-50.0); MEAN CORPUSCULAR VOLUME 85.7 fL (80.0-94.0); MEAN PLATELET VOLUME 7.6 fl (7.4-10.4); MONOCYTES % 8.5 % (2.0-8.0); NEUTROPHILS % 72.9 % (40.0-76.0); PLATELET 251 x1000/uL (130-400); RED BLOOD CELL COUNT 2.69 mill/uL (4.7-6.1); RED CELL DISTRIBUTION WIDTH 17.4 % (11.6-14.6)
[2021-02-20 11:21] LABS: CHLORIDE 113 mEq/L (98-107)
[2021-02-20] MEDS ORDERED: POTASSIUM CHLORIDE 20MEQ TABLET SR PO NR (12:15)
[2021-02-20] MEDS: CEFTRIAXONE 2 G in DEXTROSE 5% WATER 50 ML IV SCH (13:05)
[2021-02-20] MEDS: HYDRALAZINE HCL 50MG TABLET PO SCH ×2 (15:05→21:55)
[2021-02-20] MEDS: TRAMADOL 50MG TABLET PO PRN (15:05)
[2021-02-20] MEDS: POTASSIUM CHLORIDE 20MEQ TABLET SR PO SCH (17:55)
[2021-02-20] MEDS: CLONIDINE 0.1MG TABLET PO PRN (18:25)
[2021-02-20] MEDS ORDERED: LINEZOLID 600 MG PREMIX 300 ML IV SCH (21:00)
[2021-02-20] MEDS: LINEZOLID 600 MG PREMIX 300 ML IV SCH (21:53)
[2021-02-21] VITALS (12 sets, daily range): BP systolic 134–163; BP diastolic 44–80
[2021-02-21] MEDS: HYDRALAZINE HCL 50MG TABLET PO SCH (06:06)
[2021-02-21 06:51] LABS: CHLORIDE 114 mEq/L (98-107)
[2021-02-21 07:00] LABS: EOSINOPHILS % 1.5 % (0.0-5.0); HEMATOCRIT. 21.8 % (42.0-52.0); HEMOGLOBIN. 7.4 g/dL (14.0-18.0); MEAN CORPUSCULAR HEMOGLOBIN 29.4 pg (28.0-32.0); MEAN CORPUSCULAR VOLUME 86.8 fL (80.0-94.0); MONOCYTES % 10.2 % (2.0-8.0); NEUTROPHILS % 69.3 % (40.0-76.0); PLATELET 231 x1000/uL (130-400); RED BLOOD CELL COUNT 2.51 mill/uL (4.7-6.1); RED CELL DISTRIBUTION WIDTH 16.6 % (11.6-14.6)
[2021-02-21] MEDS: POTASSIUM CHLORIDE 20MEQ TABLET SR PO SCH (08:25)
[2021-02-21] MEDS: CEFTRIAXONE 2 G in DEXTROSE 5% WATER 50 ML IV SCH (08:25)
[2021-02-21] MEDS: GABAPENTIN 300MG CAPSULE PO SCH ×3 (08:26→17:42)
[2021-02-21] MEDS: ALLOPURINOL 300 MG TABLET PO SCH (08:26)
[2021-02-21] MEDS: TRAMADOL 50MG TABLET PO PRN ×3 (08:26→19:34)
[2021-02-21] MEDS: COLCHICINE 0.6MG TABLET PO SCH ×2 (08:26→21:10)
[2021-02-21] MEDS: DOCUSATE SODIUM SUGAR FREE 100MG/10ML UDC PO SCH (08:26)
[2021-02-21] MEDS: DOCUSATE SODIUM 100MG CAPSULE PO SCH ×2 (10:00→17:00)
[2021-02-21] MEDS: FOLIC ACID 1MG TABLET PO SCH (11:00)
[2021-02-21] MEDS: LINEZOLID 600 MG PREMIX 300 ML IV SCH ×2 (11:00→21:10)
[2021-02-21] MEDS: FERROUS SULFATE 325MG TABLET PO SCH ×2 (11:00→17:42)
[2021-02-21] MEDS: HYDRALAZINE HCL 25MG TABLET PO SCH ×2 (12:44→21:10)
[2021-02-21] MEDS: HEPARIN 5000 UNITS/ML VIAL SUBCUT SCH (12:44)
[2021-02-22] VITALS (12 sets, daily range): BP systolic 125–145; BP diastolic 44–81
[2021-02-22] MEDS: HEPARIN 5000 UNITS/ML VIAL SUBCUT SCH (01:10)
[2021-02-22] MEDS: METHYLPREDNISOLONE SOD SUCC 40 MG/ML VIAL IV SCH ×3 (01:10→17:35)
[2021-02-22] MEDS: CELECOXIB 100MG CAPSULE PO SCH ×2 (01:10→09:18)
[2021-02-22] MEDS: TRAMADOL 50MG TABLET PO PRN ×2 (05:51→09:19)
[2021-02-22] MEDS: HYDRALAZINE HCL 25MG TABLET PO SCH ×3 (05:53→20:30)
[2021-02-22 07:38] LABS: CHLORIDE 110 mEq/L (98-107); MEAN CORPUSCULAR HEMOGLOBIN 28.5 pg (28.0-32.0); MEAN CORPUSCULAR VOLUME 87.6 fL (80.0-94.0); PLATELET 182 x1000/uL (130-400); RED CELL DISTRIBUTION WIDTH 16.7 % (11.6-14.6)
[2021-02-22 08:08] LABS: HAPTOGLOBIN 246 mg/dL (30-200)
[2021-02-22 08:12] LABS: HEMATOCRIT. 20.2 % (42.0-52.0); HEMOGLOBIN. 6.6 g/dL (14.0-18.0)
[2021-02-22] MEDS: DOCUSATE SODIUM 100MG CAPSULE PO SCH ×2 (09:00→17:00)
[2021-02-22] MEDS: COLCHICINE 0.6MG TABLET PO SCH ×2 (09:18→20:30)
[2021-02-22] MEDS: ALLOPURINOL 300 MG TABLET PO SCH (09:18)
[2021-02-22] MEDS: FOLIC ACID 1MG TABLET PO SCH (09:18)
[2021-02-22] MEDS: FERROUS SULFATE 325MG TABLET PO SCH ×3 (09:18→17:35)
[2021-02-22] MEDS: POTASSIUM CHLORIDE 20MEQ TABLET SR PO SCH (09:18)
[2021-02-22] MEDS: GABAPENTIN 300MG CAPSULE PO SCH ×3 (09:18→17:35)
[2021-02-22] MEDS: CEFTRIAXONE 2 G in DEXTROSE 5% WATER 50 ML IV SCH (09:18)
[2021-02-22] MEDS: LINEZOLID 600 MG PREMIX 300 ML IV SCH ×2 (11:06→20:30)
[2021-02-22] MEDS ORDERED: MAGNESIUM 2 G PREMIX 50 ML IV NR (15:00)
[2021-02-22 16:31] LABS: PLATELET ESTIMATE NORMAL
[2021-02-23] VITALS (11 sets, daily range): BP systolic 114–149; BP diastolic 63–87
[2021-02-23] MEDS: TRAMADOL 50MG TABLET PO PRN ×2 (02:13→09:13)
[2021-02-23] MEDS: METHYLPREDNISOLONE SOD SUCC 40 MG/ML VIAL IV SCH ×2 (05:01→18:00)
[2021-02-23] MEDS: HYDRALAZINE HCL 25MG TABLET PO SCH ×2 (05:02→13:30)
[2021-02-23] MEDS: FERROUS SULFATE 325MG TABLET PO SCH ×3 (05:02→16:50)
[2021-02-23 07:17] LABS: BASOPHILS % 0.3 % (0.0-2.0); HEMATOCRIT. 22.1 % (42.0-52.0); HEMOGLOBIN. 7.4 g/dL (14.0-18.0); LYMPHOCYTES % 12.7 % (20.0-50.0); MEAN CORPUSCULAR HEMOGLOBIN 28.7 pg (28.0-32.0); MEAN CORPUSCULAR VOLUME 86.3 fL (80.0-94.0); MEAN PLATELET VOLUME 8.6 fl (7.4-10.4); MONOCYTES % 9.3 % (2.0-8.0); NEUTROPHILS % 77.7 % (40.0-76.0); PLATELET 207 x1000/uL (130-400); RED BLOOD CELL COUNT 2.57 mill/uL (4.7-6.1); RED CELL DISTRIBUTION WIDTH 17.2 % (11.6-14.6)
[2021-02-23 07:40] LABS: CHLORIDE 111 mEq/L (98-107)
[2021-02-23] MEDS: DOCUSATE SODIUM 100MG CAPSULE PO SCH ×2 (09:00→16:51)
[2021-02-23] MEDS: GABAPENTIN 300MG CAPSULE PO SCH ×3 (09:08→16:50)
[2021-02-23] MEDS: ALLOPURINOL 300 MG TABLET PO SCH (09:08)
[2021-02-23] MEDS: CELECOXIB 100MG CAPSULE PO SCH (09:10)
[2021-02-23 09:11] LABS: ERYTHROPOIETIN SERUM 16.5 mIU/mL (2.6-18.5)
[2021-02-23] MEDS: COLCHICINE 0.6MG TABLET PO SCH (09:11)
[2021-02-23] MEDS: POTASSIUM CHLORIDE 20MEQ TABLET SR PO SCH (09:15)
[2021-02-23] MEDS: FOLIC ACID 1MG TABLET PO SCH (09:15)
[2021-02-23] MEDS: LINEZOLID 600 MG PREMIX 300 ML IV SCH (09:16)
[2021-02-23] MEDS: CEFTRIAXONE 2 G in DEXTROSE 5% WATER 50 ML IV SCH (09:16)
[2021-02-23] MEDS ORDERED: EPOETIN ALFA-EPBX 4,000 UNIT/ML VIAL SUBCUT SCH (17:30)
[2021-02-24 19:06] LABS: ANA IFA Negative (.)
== END 2021-02-23 18:50 | DRG 853 ==
LOC: ER 12:09 → 3WST 14:23 → ENRESERV 14:53 → 3WST 17:41
PROVIDERS: ADMIT Internal Medicine; ATTEND Internal Medicine
PROC: 0S9N0ZZ Drainage of Left Metatarsal-Phalangeal Joint, Open Approach (ICD-10-PCS; principal; 2021-02-20)
PROC: 0S9Q0ZZ Drainage of Left Toe Phalangeal Joint, Open Approach (ICD-10-PCS; 2021-02-20)
DX: A41.9 Sepsis, unspecified organism (principal); E43 Unspecified severe protein-calorie malnutrition; R53.2 Functional quadriplegia; G93.41 Metabolic encephalopathy; D62 Acute posthemorrhagic anemia; L03.113 Cellulitis of right upper limb; L02.612 Cutaneous abscess of left foot; N17.9 Acute kidney failure, unspecified; M86.8X4 Other osteomyelitis, hand; D61.9 Aplastic anemia, unspecified; E87.6 Hypokalemia; G54.6 Phantom limb syndrome with pain; I10 Essential (primary) hypertension; I44.1 Atrioventricular block, second degree; I73.9 Peripheral vascular disease, unspecified; K80.20 Calculus of gallbladder without cholecystitis without obstruction; L03.032 Cellulitis of left toe; L85.3 Xerosis cutis; Z96.649 Presence of unspecified artificial hip joint; Z96.659 Presence of unspecified artificial knee joint; C61 Malignant neoplasm of prostate; G62.9 Polyneuropathy, unspecified; R53.81 Other malaise; R26.9 Unspecified abnormalities of gait and mobility; I25.10 Atherosclerotic heart disease of native coronary artery without angina pectoris; K76.0 Fatty (change of) liver, not elsewhere classified; E83.42 Hypomagnesemia; E66.01 Morbid (severe) obesity due to excess calories; Z82.49 Family history of ischemic heart disease and other diseases of the circulatory system; Z83.3 Family history of diabetes mellitus; Z89.511 Acquired absence of right leg below knee; Z79.899 Other long term (current) drug therapy; Z68.33 Body mass index [BMI] 33.0-33.9, adult; M1A.0721 Idiopathic chronic gout, left ankle and foot, with tophus (tophi); M65.841 Other synovitis and tenosynovitis, right hand; D63.8 Anemia in other chronic diseases classified elsewhere; L89.156 Pressure-induced deep tissue damage of sacral region
CPT/HCPCS: 36415; 73630; 80053; 82270; 82607; 82668; 82728; 82746; 82784; 83010; 83540; 83550; 83615; 83735; 84134; 84550; 85025; 85044; 85384; 85651; 86256; 86334; 86431; 86850; 86880; 86900; 87070; 87075; 92523; 92610; 93005; 93922; 97110; 97162; 97166; 97530; 99291; J0696; J0885; J1644; J2020; J2920; J3475; J3490; J7040; J7060